=== PATIENT | female | born 1990 | race Two or more races ===

== ENCOUNTER 2021-02-12 20:04 | Observation (INO) | payer MEDICAID ==
[~2021-02-12] VITALS: Ht 175.3 cm; Wt 83.9 kg
== END 2021-02-12 22:32 | disposition home or self-care (01) ==
LOC: LDRP 20:04
PROVIDERS: ADMIT Specialist; ATTEND Specialist
DX: O99.891 Other specified diseases and conditions complicating pregnancy (principal); M54.9 Dorsalgia, unspecified; V89.2XXA Person injured in unspecified motor-vehicle accident, traffic, initial encounter; Y93.89 Activity, other specified; Y92.89 Other specified places as the place of occurrence of the external cause; Z3A.29 29 weeks gestation of pregnancy
CPT/HCPCS: 59025; 76815; 81002; G0378

== ENCOUNTER 2024-05-03 11:05 | Observation (INO) | payer MEDICAID ==
[2024-05-03] MEDS ORDERED: PREN-96 PO (11:35)
== END 2024-05-03 12:20 | disposition home or self-care (01) ==
LOC: LDRP 11:05
PROVIDERS: ADMIT Obstetrics & Gynecology; ATTEND Obstetrics & Gynecology
DX: O42.913 Preterm premature rupture of membranes, unspecified as to length of time between rupture and onset of labor, third trimester (principal); Z3A.35 35 weeks gestation of pregnancy
CPT/HCPCS: 59025; 76818; 81002; 94760; G0378

== ENCOUNTER 2024-05-25 18:55 | Observation (INO) | payer MEDICAID ==
[~2024-05-25] VITALS: Ht 175.3 cm; Wt 90.7 kg
[~2024-05-25 18:55] MED LIST: PREN-96 PO
[2024-05-25] MEDS ORDERED: TERBUTALINE SULFATE 1 MG/ML 1ML VIAL SC ONE (19:30)
[2024-05-25 21:06] LABS: Urine Bacteria None Seen /hpf (None Seen); Urine Blood 1+ /uL (Negative); Urine Clarity Turbid (Clear); Urine Color Yellow (Yellow); Urine Mucus FEW (None Seen); Urine Protein, UAD 2+ (Negative); Urine Specific Gravity 1.033 (1.001-1.035); Urine Urobilinogen 2 mg/dL (Negative); Urine WBC 4 /hpf (0 - 5); Urine pH 5.5 (5.0-9.0)
[2024-05-25] MEDS: ONDANSETRON HCL 4 MG/2 ML VIAL IV PRN (21:26)
[2024-05-25] MEDS: LACTATED RINGER'S 1,000 ML IV SCH (21:32)
[2024-05-25 21:43] LABS: COVID19 ANTIGEN SOFIA FIA NEGATIVE (NEGATIVE); Rapid Influenza A Negative (Negative); Rapid Influenza B Negative (Negative)
[2024-05-25] MEDS: D5W/LACTATED RINGERS 1,000 ML IV SCH (23:44)
== END 2024-05-25 22:31 | disposition left against medical advice (07) ==
LOC: LDRP 18:55
PROVIDERS: ADMIT Obstetrics & Gynecology; ATTEND Obstetrics & Gynecology
DX: O21.2 Late vomiting of pregnancy (principal); Z20.822 Contact with and (suspected) exposure to COVID-19; O26.893 Other specified pregnancy related conditions, third trimester; R07.9 Chest pain, unspecified; R10.9 Unspecified abdominal pain; R06.02 Shortness of breath; O99.891 Other specified diseases and conditions complicating pregnancy; M54.50 Low back pain, unspecified; Z3A.36 36 weeks gestation of pregnancy; Z79.899 Other long term (current) drug therapy
CPT/HCPCS: 36415; 59025; 76817; 76818; 81001; 81002; 87426; 87804; 94762; 96361; 96374; G0378; J2405; 96360

== ENCOUNTER 2024-06-13 22:36 | Observation (INO) | payer MEDICAID ==
[~2024-06-13] VITALS: Ht 175.3 cm; Wt 92.1 kg
[2024-06-13 23:23] LABS: Urine Bacteria None Seen /hpf (None Seen)
[2024-06-13] MEDS: LACTATED RINGER'S 1,000 ML IV ONE (23:30)
[2024-06-13] MEDS: LACTATED RINGER'S 1,000 ML IV SCH (23:30)
[2024-06-13 23:49] LABS: Urine Blood 1+ /uL (Negative); Urine Clarity Clear (Clear); Urine Color Yellow (Yellow); Urine Mucus FEW (None Seen); Urine Protein, UAD 1+ (Negative); Urine Urobilinogen 3 mg/dL (Negative); Urine WBC 1 /hpf (0 - 5)
[2024-06-13 23:55] LABS: Fern Testing Negative
== END 2024-06-14 00:31 | disposition home or self-care (01) ==
LOC: LDRP 22:36
PROVIDERS: ADMIT Obstetrics & Gynecology; ATTEND Obstetrics & Gynecology
DX: O62.9 Abnormality of forces of labor, unspecified (principal); Z3A.38 38 weeks gestation of pregnancy
CPT/HCPCS: 59025; 76805; 76818; 81001; 81002; 84112; 94760; G0378; Q0114

== ENCOUNTER 2024-06-15 10:10 | Observation (INO) | payer MEDICAID ==
[2024-06-15 11:10] LABS: Basophils # (auto) 0 10 ^3/uL (0-0.2); Basophils % (auto) 0.2 % (0.0-2.0); Eosinophils # (auto) 0.2 10 ^3/uL (0-0.8); Eosinophils % (auto) 2.1 % (0.0-7.0); Hematocrit 31.6 % (36.0-46.0); Hemoglobin 10.9 g/dL (12.2-16.2); Lymphocytes # (auto) 2.4 10 ^3/uL (0.4-5.4); Lymphocytes % (auto) 24.2 % (10.0-50.0); Mean Corpuscular Hemoglobin 27.9 pg (28.0-32.0); Mean Corpuscular Hgb Conc. 34.5 g/dL (32.0-36.0); Mean Corpuscular Volume 80.8 fL (80.0-100.0); Monocytes # (auto) 0.9 10 ^3/uL (0-1.3); Monocytes % (auto) 8.8 % (0.0-12.0); Neutrophils # (auto) 6.5 10 ^3/uL (1.6-8.6); Neutrophils % (auto) 64.7 % (37.0-80.0); Nucleated Red Blood Cells % 0.1 %; Red Blood Cells 3.91 10^6/uL (4.0-5.20); Red Cell Distribution Width 13.1 % (11.8-14.3)
[2024-06-15 11:28] LABS: INR 0.97 (0.9-1.15); Prothrombin Time 10.3 sec (9.3-11.8)
[2024-06-15 11:42] LABS: Alanine Aminotransferase 18 U/L (7-40); Albumin 3.7 g/dL (3.2-4.8); Alkaline Phosphatase 152 U/L (46-116); Anion Gap 9 (5-15); Aspartate Aminotransferase 19 U/L (13-40); Bilirubin, Total 0.4 mg/dL (0.2-1.0); Calcium 8.8 mg/dL (8.7-10.4); Carbon Dioxide 23 mmol/L (20-30); Chloride 107 mmol/L (98-107); Glucose 89 mg/dL (74-106); Potassium 3.8 mmol/L (3.5-5.1); Sodium 139 mmol/L (136-145); Total Protein 6.5 g/dL (5.7-8.2); Uric Acid 2.9 mg/dL (3.1-7.8)
[2024-06-15 11:44] LABS: BUN/Creatinine Ratio 15.2 (10.0-20.0); Blood Urea Nitrogen < 5 mg/dL (9-23)
[2024-06-15 11:54] LABS: Urine Bacteria None Seen /hpf (None Seen)
[2024-06-15 12:18] LABS: Protein, Urine 17.9 mg/dL (0.0-11.9)
[2024-06-15 12:20] LABS: Creatinine, Urine 115.61 mg/dL (30.0-125.0); Urine Protein/Creatinine Ratio 0.15
[2024-06-15 12:21] LABS: Urine Blood 1+ /uL (Negative); Urine Clarity Clear (Clear); Urine Color Yellow (Yellow); Urine Mucus FEW (None Seen); Urine Protein, UAD TRACE (Negative); Urine Specific Gravity 1.023 (1.001-1.035); Urine Urobilinogen Normal (Negative); Urine WBC 2 /hpf (0 - 5); Urine pH 5.5 (5.0-9.0)
[2024-06-15 12:33] LABS: Fern Testing Negative
== END 2024-06-15 13:10 | disposition home or self-care (01) ==
LOC: LDRP 10:10
PROVIDERS: ADMIT Obstetrics & Gynecology; ATTEND Obstetrics & Gynecology
DX: O13.3 Gestational [pregnancy-induced] hypertension without significant proteinuria, third trimester (principal); Z3A.38 38 weeks gestation of pregnancy
CPT/HCPCS: 36415; 59025; 76818; 80053; 81001; 81002; 82570; 84112; 84156; 84550; 85025; 85610; 85730; 94760; G0378; Q0114

== ENCOUNTER 2024-06-16 15:40 | Inpatient (IN) | payer MEDICAID ==
[~2024-06-16] VITALS: Ht 175.3 cm; Wt 95.3 kg
[2024-06-16] MEDS: LACTATED RINGER'S 1,000 ML IV ONE (18:15)
[2024-06-16] MEDS ORDERED: BUTORPHANOL TARTRATE 2 MG/1 ML VIAL IV PRN ×2 (19:00)
[2024-06-16] MEDS ORDERED: LIDOCAINE 2%HCL (LOCAL ANESTH.) INJ 20ML MDV IJ PRN (19:00)
[2024-06-16 20:05] LABS: Amphetamine Screen, Urine Neg (NEGATIVE)
[2024-06-16 20:06] LABS: Barbiturate Scree,Urine Neg (NEGATIVE); Benzodiazephine Screen, Urine Neg (NEGATIVE); Cannabinoid Screen, Urine Neg (NEGATIVE); Cocaine Screen, Urine Neg (NEGATIVE); Opiate Scree,Urine Neg (NEGATIVE); Phencyclidine Screen, Urine Neg (NEGATIVE)
[2024-06-16 20:28] LABS: Urine Bacteria FEW /hpf (None Seen); Urine Blood Negative /uL (Negative); Urine Clarity Clear (Clear); Urine Color Yellow (Yellow); Urine Mucus FEW (None Seen); Urine Protein, UAD Negative (Negative); Urine Specific Gravity 1.019 (1.001-1.035); Urine Urobilinogen 3 mg/dL (Negative); Urine WBC 1 /hpf (0 - 5); Urine pH 6.5 (5.0-9.0)
[2024-06-16 20:41] LABS: Basophils # (auto) 0 10 ^3/uL (0-0.2); Basophils % (auto) 0.2 % (0.0-2.0); Eosinophils # (auto) 0.2 10 ^3/uL (0-0.8); Eosinophils % (auto) 1.3 % (0.0-7.0); Hematocrit 33.1 % (36.0-46.0); Hemoglobin 11.2 g/dL (12.2-16.2); Lymphocytes # (auto) 2.7 10 ^3/uL (0.4-5.4); Lymphocytes % (auto) 22.4 % (10.0-50.0); Mean Corpuscular Hemoglobin 27.3 pg (28.0-32.0); Mean Corpuscular Hgb Conc. 33.7 g/dL (32.0-36.0); Monocytes # (auto) 0.8 10 ^3/uL (0-1.3); Neutrophils # (auto) 8.3 10 ^3/uL (1.6-8.6); Neutrophils % (auto) 69.1 % (37.0-80.0); Red Blood Cells 4.09 10^6/uL (4.0-5.20); Red Cell Distribution Width 13.4 % (11.8-14.3)
[2024-06-16 20:57] LABS: Alanine Aminotransferase 15 U/L (7-40); Albumin 3.8 g/dL (3.2-4.8); Alkaline Phosphatase 158 U/L (46-116); Anion Gap 9 (5-15); Aspartate Aminotransferase 15 U/L (13-40); BUN/Creatinine Ratio 14.7 (10.0-20.0); Bilirubin, Total 0.4 mg/dL (0.2-1.0); Blood Urea Nitrogen < 5 mg/dL (9-23); Calcium 9.3 mg/dL (8.7-10.4); Carbon Dioxide 23 mmol/L (20-30); Chloride 106 mmol/L (98-107); Glucose 80 mg/dL (74-106); Potassium 3.8 mmol/L (3.5-5.1); Sodium 138 mmol/L (136-145); Total Protein 6.4 g/dL (5.7-8.2)
[2024-06-16 20:59] LABS: Prothrombin Time 10.6 sec (9.3-11.8)
[2024-06-16] MEDS: ceFAZolin 1GM/50ML 50 ML IV SCH (21:29)
[2024-06-16] MEDS: PENICILLIN G POT 5MIL/D5 50ML 50 ML IV ONE (22:13)
[2024-06-16] MEDS: LACTATED RINGER'S 1,000 ML IV SCH (22:17)
[2024-06-17] MEDS: PENICILLIN G POTASSIUM 2,500,000 UNITS in D5W 5% 50 ML IV SCH (02:06)
[2024-06-17] MEDS: miSOPROStol 50 MCG per PRE-CUT 1/2 TAB PO PRN (03:40)
[2024-06-17] MEDS: PHISODERM TOP SOLN 240ML BTL TOP PRN (03:47)
[2024-06-17] MEDS: DERMOPLAST 60ML BOTTLE TOP PRN (03:48)
[2024-06-17] MEDS: WITCH HAZEL-GLYCERIN PAD TOP PRN (03:48)
[2024-06-17] MEDS: ONDANSETRON HCL 4 MG/2 ML VIAL IV PRN (06:59)
[2024-06-17] MEDS ORDERED: LACT. RINGERS/OXYTOCIN 20UNITS 1,000 ML IV SCH (07:30)
[2024-06-17] MEDS ORDERED: LACT. RINGERS/OXYTOCIN 20UNITS 500 ML IV ONE ×2 (07:30→08:00)
[2024-06-17] MEDS ORDERED: TERBUTALINE SULFATE 1 MG/ML 1ML VIAL SC PRN (07:30)
[2024-06-17] MEDS ORDERED: miSOPROStol 100 mcg TAB PR PRN (10:30)
[2024-06-17] MEDS ORDERED: miSOPROStol 100 mcg TAB SL PRN (10:30)
[2024-06-17] MEDS: ceFAZolin 1GM/50ML 50 ML IV SCH (13:52)
[2024-06-17] MEDS ORDERED: ONDANSETRON ODT 4 MG TAB PO PRN ×2 (17:45→21:00)
[2024-06-17] MEDS: LACT. RINGERS/OXYTOCIN 20UNITS 500 ML IV ONE ×2 (18:03→18:05)
[2024-06-17] MEDS: DIPHENOXYLATE W/ATROPINE 2.5 MG TAB PO ONE (18:06)
[2024-06-17] MEDS: CARBOPROST TROMETHAMINE 250 MCG/1ML VIAL IM ONE ×4 (18:15→20:42)
[2024-06-17] MEDS: METHYLERGONOVINE MALEATE 0.2 MG/ML AMP IM PRN (18:16)
[2024-06-17 18:27] LABS: Basophils # (auto) 0 10 ^3/uL (0-0.2); Basophils % (auto) 0.2 % (0.0-2.0); Eosinophils # (auto) 0 10 ^3/uL (0-0.8); Eosinophils % (auto) 0.1 % (0.0-7.0); Hematocrit 36.6 % (36.0-46.0); Hemoglobin 12.2 g/dL (12.2-16.2); Lymphocytes # (auto) 1.5 10 ^3/uL (0.4-5.4); Lymphocytes % (auto) 6.4 % (10.0-50.0); Mean Corpuscular Hemoglobin 27.1 pg (28.0-32.0); Mean Corpuscular Hgb Conc. 33.2 g/dL (32.0-36.0); Mean Corpuscular Volume 81.6 fL (80.0-100.0); Monocytes # (auto) 1.1 10 ^3/uL (0-1.3); Monocytes % (auto) 4.6 % (0.0-12.0); Neutrophils # (auto) 20.6 10 ^3/uL (1.6-8.6); Neutrophils % (auto) 88.7 % (37.0-80.0); Red Blood Cells 4.48 10^6/uL (4.0-5.20); Red Cell Distribution Width 13.7 % (11.8-14.3); White Blood Cell 23.2 10^3/uL (4.4-10.8)
[2024-06-17] MEDS: ACETAMINOPHEN 325 MG TAB PO STA (19:00)
[2024-06-17] MEDS: IBUPROFEN 800 MG TAB PO STA (19:00)
[2024-06-17] MEDS ORDERED: LACT. RINGER'S W OXYTOCIN 20UNITS/1000 ML IV STA (20:01)
[2024-06-17] MEDS ORDERED: TRANEXAMIC ACID 1,000 mg/10ml INJ VIAL IV ONE (20:08)
[2024-06-17] MEDS: NALBUPHINE HCL 10 MG/1ml INJECTION IV ONE (20:44)
[2024-06-17] MEDS: DOCUSATE SOD 100 MG CAP PO SCH (21:49)
[2024-06-17] MEDS ORDERED: DOCUSATE SOD 100 MG CAP PO SCH (22:00)
[2024-06-17] MEDS: CARBOPROST TROMETHAMINE 250 MCG/1ML VIAL IM STA (22:01)
[2024-06-17 23:00] VITALS: BP 120/69; PULSE 71; RESP 18; TEMP 98.2; O2SAT 99
[2024-06-17] MEDS: LACT. RINGERS/OXYTOCIN 20UNITS 1,000 ML IV ONE (23:00)
[2024-06-18 03:00] VITALS: BP 107/63; PULSE 65; RESP 16; TEMP 98.7; O2SAT 97
[2024-06-18] MEDS: ACETAMINOPHEN 325 MG TAB PO PRN (05:54)
[2024-06-18 06:50] VITALS: BP 105/59; PULSE 66; RESP 18; TEMP 98.9; O2SAT 98
[2024-06-18 07:44] LABS: Basophils # (auto) 0 10 ^3/uL (0-0.2); Basophils % (auto) 0.1 % (0.0-2.0); Eosinophils # (auto) 0.1 10 ^3/uL (0-0.8); Eosinophils % (auto) 0.3 % (0.0-7.0); Hematocrit 30.6 % (36.0-46.0); Hemoglobin 10.3 g/dL (12.2-16.2); Lymphocytes # (auto) 2.6 10 ^3/uL (0.4-5.4); Lymphocytes % (auto) 12.5 % (10.0-50.0); Mean Corpuscular Hemoglobin 27.1 pg (28.0-32.0); Mean Corpuscular Hgb Conc. 33.8 g/dL (32.0-36.0); Mean Corpuscular Volume 80.3 fL (80.0-100.0); Monocytes # (auto) 1.7 10 ^3/uL (0-1.3); Monocytes % (auto) 8.4 % (0.0-12.0); Neutrophils # (auto) 16.3 10 ^3/uL (1.6-8.6); Neutrophils % (auto) 78.7 % (37.0-80.0); Nucleated Red Blood Cells % 0.1 %; Red Blood Cells 3.81 10^6/uL (4.0-5.20); Red Cell Distribution Width 13.4 % (11.8-14.3); White Blood Cell 20.7 10^3/uL (4.4-10.8)
[2024-06-18 07:50] LABS: Alanine Aminotransferase 21 U/L (7-40); Albumin 3.2 g/dL (3.2-4.8); Alkaline Phosphatase 135 U/L (46-116); Anion Gap 5 (5-15); Aspartate Aminotransferase 37 U/L (13-40); BUN/Creatinine Ratio 13.2 (10.0-20.0); Bilirubin, Total 0.9 mg/dL (0.2-1.0); Blood Urea Nitrogen < 5 mg/dL (9-23); Calcium 8.7 mg/dL (8.7-10.4); Carbon Dioxide 27 mmol/L (20-30); Chloride 103 mmol/L (98-107); Glucose 84 mg/dL (74-106); Potassium 3.7 mmol/L (3.5-5.1); Sodium 135 mmol/L (136-145); Total Protein 5.7 g/dL (5.7-8.2)
[2024-06-18] MEDS: IBUPROFEN 600 MG TAB PO PRN (09:07)
[2024-06-18 11:00] VITALS: BP 105/52; PULSE 70; RESP 18; TEMP 98.3; O2SAT 96
[2024-06-18 15:07] VITALS: BP 97/55; PULSE 73; RESP 20; TEMP 97.9; O2SAT 97
[2024-06-18 19:00] VITALS: BP 110/60; PULSE 75; RESP 18; TEMP 98.7; O2SAT 98
[2024-06-18] MEDS ORDERED: IBU600T PO (19:54)
[2024-06-18 20:47] VITALS: BP 110/60; PULSE 80; RESP 16; TEMP 98.6; O2SAT 98
[2024-06-23 12:46] LABS: RPR Non Reactive (Non Reactive)
== END 2024-06-18 20:47 | disposition home or self-care (01) | DRG 560 ==
LOC: LDRP 15:40 → OBSVTOIN 18:33 → LDRP 20:53
PROVIDERS: ADMIT Obstetrics & Gynecology; ATTEND Obstetrics & Gynecology
PROC: 10E0XZZ Delivery of Products of Conception, External Approach (ICD-10-PCS; principal; 2024-06-17)
DX: O42.02 Full-term premature rupture of membranes, onset of labor within 24 hours of rupture (principal); Z37.0 Single live birth; O72.1 Other immediate postpartum hemorrhage; Z3A.38 38 weeks gestation of pregnancy
CPT/HCPCS: 36415; 59025; 59409; 76818; 80053; 80307; 81001; 81002; 85025; 85610; 85730; 86592; 86803; 86850; 86900; 86901; 86920; 87340; 94760; 94762; 96360; 96361; 96366; 96372; 96374; 96375; G0378; J2405; J2540; J2590; J7060